=== PATIENT | male | born 1945 | race Caucasian/White ===

== ENCOUNTER 2019-11-05 05:25 | Emergency (ER) | payer MEDICARE, SELFPAY ==
--- NOTE | 2019-11-05 05:25 | ECG_ITS ---
APPROVED REPORT Exam: Resting ECG HR:53 bpm ECG Measurements Heart Rate 53 AXES OH 174 P 75 QRSd 104 QRS 32 QT 414 T 78 QTc 388 <Conclusion> Sinus bradycardia Otherwise normal ECG Electronically signed by : eJff Timmons, 11/05/2019 19:49:25
[2019-11-05 05:28] VITALS: BP 116/63; PULSE 54; RESP 16; TEMP 36.8; O2SAT 98; BMI 19.3
[2019-11-05 06:00] LABS: Basophils % 0.5 % (0.1-2.0); Eosinophils # 0.1 K/mm3 (0.0-0.4); Eosinophils % 2.1 % (0.1-12.0); Hematocrit 43.5 % (42.0-52.0); Hemoglobin 14.9 g/dL (14.1-18.0); Lymphocytes # 1.5 K/mm3 (0.7-4.5); Lymphocytes % 25.8 % (10-50); Mean Corpuscular HGB Conc 34.2 g/dL (31.8-35.4); Mean Corpuscular Hemoglobin 30.3 pg (27.0-31.2); Mean Corpuscular Volume 88.4 fl (80-94); Mean Platelet Volume 7.7 fl (7.4-10.4); Monocytes # 0.3 K/mm3 (0.1-1.0); Monocytes % 5.3 % (1.7-9.3); Neutrophils # 3.8 K/mm3 (1.8-7.8); Neutrophils % 66.3 % (37.0-80.0); Platelet Count 211 K/mm3 (142-424); Red Blood Count 4.91 M/mm3 (4.60-6.20); Red Cell Distribution Width 13.6 % (11.5-17.5); White Blood Count 5.7 K/mm3 (4.8-10.8)
[2019-11-05 06:12] LABS: Alanine Aminotransferase 45 U/L (12-78); Albumin Level 3.9 g/dl (3.5-5.0); Albumin/Globulin Ratio 1.5 (1.1-1.8); Alkaline Phosphatase 80 U/L (38-126); Anion Gap 10.8 mEq/L (5-15); Aspartate Amino Transferase 32 U/L (17-59); Bilirubin,Total 0.5 mg/dl (0.2-1.3); Blood Urea Nitrogen 13 mg/dl (9-20); Calcium 9.1 mg/dl (8.4-10.2); Carbon Dioxide 31 mmol/L (22.0-30.0); Chloride 100 mmol/L (98-107); Creatinine Clearance Estimated 51 mL/min (50-200); Estimated Glomerular Filt Rate 132 ml/min (>60); GFR (African American) 160 ML/MIN (>60); Globulin 2.6 g/dL (1.3-3.2); Glucose 94 mg/dl (74-100); Potassium 3.8 mmoL/L (3.5-5.1); Sodium 138 mmol/L (136-145); Total Protein,Serum 6.5 g/dl (6.3-8.2)
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
--- NOTE | 2019-11-05 06:39 | PC.NURSE ---
spoke with KWAME (pt's ). KWAME states that daughter called EMS and doesn't know why. KWAME states that she doesn't pt to be checked out and wishes to be returned home. also spoke with the daughter that called EMS. Daughter states she feels the pt's is not making the right decisions in regards to his care. KWAME still advises that she wishes for pt to return to home.
[2019-11-05 06:45] VITALS: BP 108/85; PULSE 51; RESP 16; TEMP 36.8; O2SAT 97
== END 2019-11-05 07:01 | disposition home or self-care (01) ==
PROVIDERS: Emergency Provider Emergency Medicine
DX: G31.83 Neurocognitive disorder with Lewy bodies (principal); F02.80 Dementia in other diseases classified elsewhere, unspecified severity, without behavioral disturbance, psychotic disturbance, mood disturbance, and anxiety
CPT/HCPCS: 80053; 85025; 93005; 99282

== ENCOUNTER 2021-07-26 16:01 | Emergency (ER) | payer MEDICARE, SELFPAY ==
[2021-07-26 16:02] VITALS: BP 123/74; PULSE 62; RESP 16; TEMP 36.5; O2SAT 96; BMI 23.1
--- NOTE | 2021-07-26 16:02 | PC.NURSE ---
When patient arrived patient's daughter stated Hospice dropped him because he wouldn't fast enough patient's daughter also stated he hasn't been out of a hospital bed or out of the house in 4 years . Patient arrived in the trunk of an [facility]. Patient had oven mitts and towels duck taped to his hands as well as a helmet duck taped to his head. Patient was unkept.
--- NOTE | 2021-07-26 16:21 | ED_ITS ---
ED Disposition Clinical Impression: Hypertrophic toenail Disposition: Home, Self-Care Condition on Discharge: Good Additional Instructions: follow up podiatry Referrals: Latia Gomes DPM [Staff Physician] - - Critical Care Critical Care Time: No Attestation: On 07/26/21, the high probability of a clinically significant, sudden or life threatening deterioration of the following system(s) required my full and direct attention, intervention and personal management. The time I documented below is in addition to time spent performing reported procedures but includes the [place] listed in this critical care notation. Medical Decision Making - Medical Records Medical records reviewed: Yes: I reviewed the patient's medical records. - Gus Inquiry Pt receiving controlled substance: No General Adult HPI - General Chief complaint: Skin/Abscess/Foreign Body Stated complaint: PAIN Time Seen by Provider: 07/26/21 16:21 Source of Information: Relative Limitations: No Limitations - History of Present Illness HPI narrative: brought by daughter asking for toenail trim h/o lewy body dementia and overgrown toenails Onset (ago): year(s) Radiation: non-radiation Severity: moderate Consistency: constant Relieving factors: none Exacerbating factors: none Associated symptoms: denies other symptoms - Related Data Allergies Allergy/AdvReac Type Severity Reaction Status Date / Time INGREDIENT: NO KNOWN - NO Allergy Mild Uncoded 02/23/17 14:59 KNOWN DRUG ALLERGY [facility] History - Hepatitis A Screen Attestation statement:: This patient has been screened for Hepatitis A risk factors. ROS Obtained: Yes All systems reviewed & no additional complaints Physical Exam - General General appearance: alert, in no apparent distress - Respiratory Respiratory exam: Absent: respiratory distress, wheezes, stridor - Cardiovascular Cardiovascular exam: Present: normal rhythm, bradycardia. Absent: tachycardia - Extremities Exam Extremities exam: Present: normal inspection, full ROM, other (cleve toenails with overgrown nail). Absent: tenderness - Neurological Exam Neurological exam: Present: alert, CN II-XII intact. Absent: motor sensory deficit - Skin Skin exam: Present: warm, intact, normal color
[2021-07-26 16:30] VITALS: BP 118/72; PULSE 61; RESP 14; TEMP 36.6; O2SAT 98
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
--- NOTE | 2021-07-29 09:59 | PC.NURSE ---
Jessica Sun from [employer] arrived at ED today she was here to see pt r/t a report she had received on pt. Pt had been discharged on the date pt was seen in ER, explained this to Carlos from [employer]. She then requested pt medical records. I at that time spoke with business operations manager (Giulia Tobin,RN) who contacted CNO and then senior medical technologist, Jesus. Laura Merritt brought paper to ED for authorization for release of medical information for Carlos from [employer] to sign. Paper filled out by myself with pt information, signed per Jessica Sun from [facility]. Jessica Sun ID verified, copy of her [employer] badge obtained and verified with her drivers license per direction of business operations manager and Laura Merritt. Authorization of release and copy of ID maintained for pt medical record.
== END 2021-07-26 16:30 | disposition home or self-care (01) ==
PROVIDERS: Emergency Provider Emergency Medicine
DX: L60.2 Onychogryphosis (principal); R00.1 Bradycardia, unspecified; G31.83 Neurocognitive disorder with Lewy bodies; F02.80 Dementia in other diseases classified elsewhere, unspecified severity, without behavioral disturbance, psychotic disturbance, mood disturbance, and anxiety
CPT/HCPCS: 99282